=== PATIENT | female | born 1950 | race Caucasian/White ===

== ENCOUNTER 2022-07-23 09:00 | Day surgery (SDC) | payer MEDICARE ==
[~2022-07-23] VITALS: Ht 167.6 cm; Wt 74.5 kg
[2022-07-23] MEDS ORDERED: ATOR10 (09:22)
[2022-07-23] MEDS ORDERED: HYDCHL50 (09:22)
[2022-07-23] MEDS ORDERED: Amlodipine Bes2.5 MG (09:22)
[2022-07-23] MEDS ORDERED: DULO30 (09:22)
[2022-07-23] MEDS ORDERED: MELO7.5 (09:22)
[2022-07-23] MEDS ORDERED: METO25ER (09:23)
[2022-07-23] MEDS ORDERED: POTA10T (09:23)
[2022-07-23] MEDS ORDERED: OLME5TAB (09:23)
== END 2022-07-23 11:33 | disposition home or self-care (01) ==
LOC: ORSCSDS 09:00
PROVIDERS: Internal Medicine Gastroenterology
PROC: 0DBK8ZX Excision of Ascending Colon, Via Natural or Artificial Opening Endoscopic, Diagnostic (ICD-10-PCS; principal; 2022-07-23 10:30)
DX: Z12.11 Encounter for screening for malignant neoplasm of colon (principal); Z86.010 Personal history of colon polyps; D12.2 Benign neoplasm of ascending colon; K57.30 Diverticulosis of large intestine without perforation or abscess without bleeding; K64.8 Other hemorrhoids; G47.33 Obstructive sleep apnea (adult) (pediatric); E78.5 Hyperlipidemia, unspecified; I10 Essential (primary) hypertension; Z79.82 Long term (current) use of aspirin; Z79.899 Other long term (current) drug therapy
CPT/HCPCS: 88305; J2704; J7120

== ENCOUNTER 2022-12-02 06:03 | Day surgery (SDC) | payer MEDICARE ==
[~2022-12-02] VITALS: Ht 167.6 cm; Wt 74.8 kg
[~2022-12-02 06:03] MED LIST: ATOR10; Amlodipine Bes2.5 MG; DULO30; HYDCHL50; MELO7.5; METO25ER; OLME5TAB; POTA10T
[2022-12-02] MEDS ORDERED: ACET500 (06:26)
--- NOTE | 2022-12-02 06:32 | NUR ---
12/02/22 0632 Destiny Reina AT 0628 PLEDGET AT 0630
[2022-12-02 08:01] VITALS: BP 124/77
--- NOTE | 2022-12-02 08:27 | NUR ---
12/02/22 0827 MALACHI CARNEY, - ASSISTING WITH CARE OF PATIENT.
== END 2022-12-02 08:25 | disposition home or self-care (01) ==
LOC: ORSCSDS 06:03
PROVIDERS: Ophthalmology
PROC: 08DJ3ZZ Extraction of Right Lens, Percutaneous Approach (ICD-10-PCS; principal; 2022-12-02 07:30)
DX: H25.11 Age-related nuclear cataract, right eye (principal); H43.399 Other vitreous opacities, unspecified eye; I10 Essential (primary) hypertension; Z79.899 Other long term (current) drug therapy
CPT/HCPCS: J2001; J2250; J3010; J3301; J7040; V2632